=== PATIENT | male | born 1980 | race African-American/Black ===

== ENCOUNTER 2016-08-09 14:37 | Emergency (ER) | payer OTHER | END 2016-08-09 17:44 | disposition left against medical advice (07) | LOC: ER 15:16 | DX: Z04.3 Encounter for examination and observation following other accident (principal); Z53.21 Procedure and treatment not carried out due to patient leaving prior to being seen by health care provider ==

== ENCOUNTER 2017-11-07 14:24 | Emergency (ER) | payer MEDICARE, MEDICAID ==
[~2017-11-07] VITALS: Ht 170.2 cm; Wt 121.0 kg
[2017-11-07] MEDS ORDERED: BACITRACIN ZINC OINT UDPKT TOP ONE (14:45)
[2017-11-07] MEDS ORDERED: LIDOCAINE HCL 1% 20ML VIAL (Pyxis) INJ MC ONE (16:15)
[2017-11-07] MEDS ORDERED: TETANUS, DIPHTHERIA, PERTUSSIS VAC/PF 0.5ML (>7YR OLD) IM ONE (16:15)
[2017-11-07] MEDS ORDERED: LIDOCAINE HCL/PF 1% 10 MG/ML 5ML VIAL IJ ONE (17:15)
[2017-11-07 17:52] VITALS: BP 139/88
== END 2017-11-07 18:00 | disposition home or self-care (01) ==
LOC: ER 16:42
DX: S61.512A Laceration without foreign body of left wrist, initial encounter (principal); F17.200 Nicotine dependence, unspecified, uncomplicated; W26.8XXA Contact with other sharp object(s), not elsewhere classified, initial encounter; Y93.89 Activity, other specified; Y92.89 Other specified places as the place of occurrence of the external cause; Y99.8 Other external cause status
CPT/HCPCS: 12002; 73110; 90471; 90715; 99284; J3490

== ENCOUNTER 2017-11-22 15:45 | Emergency (ER) | payer MEDICARE, MEDICAID ==
[~2017-11-22] VITALS: Ht 172.7 cm; Wt 109.0 kg
[2017-11-22 15:50] VITALS: BP 125/73
== END 2017-11-22 16:26 | disposition home or self-care (01) ==
LOC: ER 16:23
DX: Z48.02 Encounter for removal of sutures (principal)
CPT/HCPCS: 99281

== ENCOUNTER 2018-07-11 09:59 | Emergency (ER) | payer MEDICARE, MEDICAID ==
[~2018-07-11] VITALS: Ht 182.9 cm; Wt 109.0 kg
[2018-07-11 10:25] VITALS: BP 147/92
== END 2018-07-11 14:33 | disposition left against medical advice (07) ==
LOC: ER 09:59
DX: M25.562 Pain in left knee (principal); Z53.21 Procedure and treatment not carried out due to patient leaving prior to being seen by health care provider